=== PATIENT | male | born 1955 | race Caucasian/White ===

== ENCOUNTER 2021-04-29 20:06 | Emergency (ER) | payer OTHER ==
--- OUTSIDE RECORDS SUMMARY | 2021-04-29 20:09 | XMS REPORT | Continuity of Care Document ---
:1955 Author Organization [facility] t Address [address] [place] [address] Care Team Providers Name Role Phone Asked, Pcp Primary Care Physician Unavailable Vineet BURGESS, P. Attending Clinician Marco Antonio Méndez MD Attending Clinician Katie WEN Attending Clinician Unavailable Jeremiah BURGESS, FBrittney Attending Clinician Singer ESPINAL Attending Clinician Unavailable Payers Payer Name Policy Type Policy Effective Date Expiration Date Sour ce Number AETNAAETNA [id number] 2016 [facility] 00:00:00 Jain [id number]/-PresentPOS Problems Condition Condition Condition Status Onset Resolution Last Treating Co mments Source Name Details Category Date Date Treatment Clinician Date Abnormal Abnormal Disease Active Overview: Michael bonds nuclear nuclear 03-12 [place] Meth[place] di stress stress 00:00: g of this st test test 00 note might be different from the original. Added automatic ally from request for surgery Coronary Coronary Disease Active Overview: Michael bonds artery artery - Formatt[place] [facility] disease disease 00:00: g of this st involving involving 00 note huslia huslia might be coronary coronary different artery of artery of from the huslia huslia original. heart heart Added without without automatic angina angina ally from pectoris pectoris request for surgery Coronary Coronary Disease Active [place] arterioscl arterioscl 2-12 [facility] erosis in erosis in 00:00: st huslia huslia 00 artery artery Coronary Coronary Disease Active [place] artery artery 2-12 [facility] stenosis stenosis 00:00: st 00 Dyspnea on Dyspnea on Disease Active [place] exertion exertion 2-12 Method i 00:00: st 00 Fatigue Fatigue Disease Active [place] 2-12 [facility] 00:00: st 00 Other Other Disease Active 2016-11 [place] hyperlipid hyperlipid 0-24 Me th[facility] emia emia 00:00: st 00 Primary Primary Disease Active [place] gout gout 8-23 [facility] 00:00: st 00 Allergies, Adverse Reactions, Alerts This patient has no known allergies or adverse reactions. Family History Family Member Diagnosis Comments Start Date Stop Date Source Natural brother Hypertension [facility] mother Heart disease [facility] Natural mother Hypertension [facility] Natural sister Hypertension [facility] Social History Social Habit Start Date Stop Date Quantity Comments Source History of Cigarette Smoker [facility] tobacco use Tobacco use and 2020-05-03 2020-05-03 Never used [facility] ethodist exposure 00:00:00 00:00:00 Alcohol intake 2020-05-03 2020-05-03 Current [facility] thodist 00:00:00 00:00:00 non-drinker of alcohol (finding) Sex Ass[birth year] [facility] ethodist 00:00:00 00:00:00 Smoking Status Start Date Stop Date Source Former smoker 2020-05-03 00:00:00 2020-05-03 00:00:00 [facility] Medications Ordered Filled Start Stop Current Ordering Indication Dosage Frequency Signature Comments Components Source Medication Medication Date Date Medication? Clinician (SIG) Name Name clopidogreL Yes TAKE 1 [place] (PLAVIX) 75 2-08 TABLET BY Met hodi mg tablet 00:00: MOUTH st 00 EVERY DAY carvediloL Yes TAKE 1 [place] (COREG) 2-04 TABLET BY Methodi 12.5 MG 00:00: MOUTH 2 st tablet 00 TIMES A DAY. rosuvastati Yes TAKE 1 [place] (CRESTOR) 1-19 TABLET BY Met hodi 40 MG 00:00: MOUTH st tablet 00 EVERY DAY carvediloL No 12.5mg Q.5D TAKE 1 [place] (COREG) 9-18 02-04 TABLET Method[facility] 12.5 MG 00:00: 00:00 (12.[address] tablet 00 :00 TOTAL) BY MOUTH 2 (TWO) TIMES A DAY. rosuvastati 2020- No TAKE 1 [place] st[place] n (CRESTOR) 7-13 -19 TABLET BY Me thodi 40 MG 00:00: 00:[address] tablet 00 :00 EVERY DAY febuxostat 2019- Yes 40mg QD Take 40 mg [place] (ULORIC) 40 7-10 by mouth Meth juan mg tablet 11:51: daily. st 22 lisinopriL Yes 20mg QD Take 20 mg [place] (PRINIVIL) 7-10 by mouth Metho di 20 mg 11:51: daily. st tablet 22 patiromer 2019- Yes 16.8g Take 16.8 [place] calcium 7-10 g by Methodi sorbitex 11:51: mouth. 4-5 st (Veltassa) 22 times a 16.8 gram week powder in packet packet carvediloL 2019- No 12.5mg Q.5D TAKE 1 [place] (COREG) 7-06 09-18 TABLET [facility] 12.5 MG 00:00: 00:00 (12.[address] tablet 00 :00 TOTAL) BY MOUTH 2 (TWO) TIMES A DAY. febuxostat 2019- No 40mg QD Take 40 mg [place] (ULORIC) 40 6-30 06-30 by mouth Met hodi mg tablet 11:21: 00:[address] 38 :00 carvediloL 2019-2019- No 12.5mg Q.5D TAKE 1 [place] (COREG) 6-24 07-06 TABLET [facility] 12.5 MG 00:00: 00:00 (12.[address] tablet 00 :00 TOTAL) BY MOUTH 2 (TWO) TIMES A DAY. rosuvastati 2019-2019- No TAKE 1 [place] (CRESTOR) 6-15 07-13 TABLET BY Me thodi 40 MG 00:00: 00:[address] tablet 00 :00 EVERY DAY clopidogreL 2020- No TAKE 1 [place] (PLAVIX) 75 2-17 02-08 TABLET BY Me thodi mg tablet 00:00: 00:[address] 00 :00 EVERY DAY aspirin Yes 81mg QD Take 1 [place] (ECOTRIN) 2-12 tablet (81 Meth juan 81 MG 00:00: mg total) st enteric 00 by mouth coated daily. tablet eplerenone 25mg QD Take 1 [place] (INSPRA) 25 2-12 -30 tablet (25 M ethodi MG tablet 00:00: 00:00 mg total) st 00 :00 by mouth daily. colchicine TAKE 2 [place] 0.6 mg 05-25 CAPSULES Methodi tablet 00:00: 00:[address] 00 :00 AT ONSET OF GOUT, THEN 1 CAPSULE IN 1 HOUR Immunizations Ordered Immunization Filled Immunization Date Status Commen ts Source Name Name PFIZER COVID-19 MRNA 2020-12-30 Completed [place] VACCINATION 00:00:00 Jain PFIZER COVID-19 MRNA 2020-12-11 Completed [place] VACCINATION 00:00:00 Jain Influenza, 2020-11-14 Completed [place] Unspecified 00:00:00 Jain Pneumococcal 2020-11-14 Completed [place] Polysaccharide 00:00:00 Jain Tdap 2020-11-14 Completed [place] 00:00:00 Jain Pneumococcal 2019-04-11 Completed [place] Conjugate 13-Valent 00:00:00 [place] [address] Influenza, 2018-08-18 Completed [place] Unspecified 00:00:00 Jain Influenza, 2016-09-10 Completed [place] Unspecified 00:00:00 Jain Td, Unspecified 2009-11-24 Completed [place] 00:00:00 Jain Tdap 2009-11-24 Completed [place] 00:00:00 Jain Vital Signs Vital Name Observation Time Observation Value Comments Source Body height 2020-05-13 11:46:00 185.4 cm Marquise Renee Body weight 2020-05-13 11:46:00 83.462 kg Marquise Renee BMI 2020-05-13 11:46:00 24.28 kg/m2 Marquise Renee Systolic blood 2020-05-03 11:20:00 110 mm[Hg] Jereto n Jain pressure Diastolic blood 2020-05-03 11:20:00 50 mm[Hg] [place] on Jain pressure Heart rate 2020-05-03 11:20:00 60 /min Marquise Renee Procedures Procedure Date / Time Performed Performing Clinician Sourc e CBC WITH PLATELET AND 2020-07-25 09:41:00 Daniel Méndez DIFFERENTIAL COMPREHENSIVE METABOLIC 2020-07-25 09:41:00 Daniel Méndez PANEL LIPID PANEL 2020-07-25 09:41:00 Daniel Méndez Jain TTE COMPLETE, W CONTRAST, 2020-06-24 15:01:25 Daniel Méndez W DOPPLER ([id number]) Plan of Care Planned Activity Planned Date Details Comments Source Future Scheduled 2021-06-04 INFLUENZA VACCINE [place] Jain Test 00:00:00 [code = INFLUENZA VACCINE] Future Scheduled 2003 COLONOSCOPY SCREENING [place] Jain Test 00:00:00 [code = COLONOSCOPY SCREENING] Future Scheduled 2003 SHINGLES VACCINES [place] Jain Test 00:00:00 (#1) [code = SHINGLES VACCINES (#1)] Future Scheduled 1971 Hepatitis C screening [place] Jain Test 00:00:00 (procedure) [code = 100408025] Encounters Start End Encounter Admission Attending Care Care Encounter Source Date/Time Date/Time Type Type Clinicians Facility Department ID 2020-12-30 2020-12-30 Outpatient VINEET, [facility] [id number] 824 [place] 00:00:00 00:00:[address] 2020-12-11 2020-12-11 Outpatient [facility] [id number] [place] 00:00:00 00:00:[address] 2020-06-24 2020-06-24 Outpatient MARCIO, [facility] [id number] [place] 00:00:00 00:00:00 DANIEL [address] 2020-05-13 2020-05-13 Outpatient LOKHANDWALA [facility] [id number] [place] 00:00:00 00:00:00 , KRISTOFER [address] 2020-05-03 2020-05-03 Outpatient MARCIO, [facility] [id number] [place] 00:00:00 00:00:00 DANIEL [address] Results This patient has no known results.
[2021-04-29 20:56] LABS: Absolute Lymphocytes (CBC) 2.7 K/uL (0.7-4.9); Hematocrit 41.8 % (39.6-49.0); MPV 7.6 fL (7.6-11.3); RBC Red Blood Cell Count 4.62 M/uL (4.33-5.43)
[2021-04-29] MEDS ORDERED: METHYLPREDNISOLONE 125 MG INJ ONE (21:09)
[2021-04-29] MEDS ORDERED: ALBUTEROL 2.5 MG/3 ML NEB SOL ONE (21:10)
[2021-04-29] MEDS ORDERED: IPRATROPIUM BROM 0.5MG/2.5ML ONE (21:10)
[2021-04-29 21:16] LABS: ALT/SGPT 26 U/L (12-78); AST/SGOT 19 U/L (15-37); Albumin 3.9 g/dL (3.4-5.0); Alkaline Phosphatase 110 U/L (45-117); BUN Blood Urea Nitrogen 35 mg/dL (7-18); Bicarbonate 24 mmol/L (21-32); Bilirubin Direct < 0.1 mg/dL (0-0.2); Bilirubin Total 0.3 mg/dL (0.2-1.0); Glucose Level 91 mg/dL (74-106); Magnesium 2.3 mg/dL (1.8-2.4); NT PRO-BNP 306 pg/mL (<125); Potassium 4.9 mmol/L (3.5-5.1); Protein, Total 8.2 g/dL (6.4-8.2); Sodium Level 139 mmol/L (136-145); Troponin (Emerg Dept Use Only) 0.04 ng/mL (0.0-0.045)
--- NOTE | 2021-04-29 21:42 | RAD REPORT ---
EXAM DESCRIPTION: RAD - Chest Single View - 04/29/2021 9:27 pm CLINICAL HISTORY: SOB COMPARISON: None TECHNIQUE: AP portable chest image was obtained 04/29/2021 9:27 pm . FINDINGS: No peripheral mass consolidation. Flattened diaphragm and scattered interstitial opacifica tion consistent with the COPD. No acute failure or volume overload. Interstitial pattern could potent ially mask a minimal interstitial infiltrate or edema. Heart and vasculature are normal. No measurabl e pleural effusion and no pneumothorax. No acute bony abnormality seen. No acute aortic findings susp ected. IMPRESSION: Baseline chest examination showing COPD pattern. No focal infiltrate, mass or failure finding.
[2021-04-29 21:54] LABS: Protime INR 0.99
--- NOTE | 2021-04-29 22:19 | EDPHYS ---
Physician Documentation [facility] Name: Raheem Servin Age: 65 yrs Sex: Male : 1955 Arrival Date: 04/29/2021 Time: 20:10 Bed 23 Private MD: ED Physician Cristian Anderson HPI: 04/29 20:47 This 65 yrs old Male presents to ER via Ambulatory with complaints of Cough, pm1 Breathing Difficulty. 20:47 The patient has shortness of breath at rest. Onset: The symptoms/episode began/occurred pm1 2 week(s) ago, and became worse today. Duration: The symptoms are continuous. The patient's shortness of breath is aggravated by smoking. Associated signs and symptoms: Pertinent positives: productive cough, Pertinent negatives: chest pain, fever, nausea, vomiting. Severity of symptoms: in the emergency department the symptoms. The patient has not recently seen a physician, has an appointment scheduled, with painter hand soon. Patient with onset of productive cough and change in sputum in the past two weeks. Started smoking a few weeks prior to onset of symptoms. Cough and congestion worsening this morning and then got significantly worse when he was exposed to the cold air in an auditorium. Historical: - Allergies: 20:45 fish; bb - Home Meds: 20:45 Veltassa oral oral [Active]; Crestor oral oral [Active]; Lisinopril Oral [Active]; bb carvedilol oral oral [Active]; clopidogrel oral oral [Active]; - PMHx: 20:45 kidney disease; Hypertension; Hyperlipidemia; CAD; bb - Immunization history:: Adult Immunizations up to date, Client reports receiving the 2nd dose of the Covid vaccine. - Social history:: Smoking status: Patient reports the use of cigarette tobacco products, denies chronic smoking, but will smoke occasionally. ROS: 20:47 Constitutional: Negative for fever, chills, and weight loss, Eyes: Negative for injury, pm1 pain, redness, and discharge, ENT: Negative for injury, pain, and discharge, Neck: Negative for injury, pain, and swelling, Cardiovascular: Negative for chest pain, palpitations, and edema. 20:47 Abdomen/GI: Negative for abdominal pain, nausea, vomiting, diarrhea, and constipation, Back: Negative for injury and pain, : Negative for injury, bleeding, discharge, and swelling, MS/Extremity: Negative for injury and deformity, Skin: Negative for injury, rash, and discoloration, Neuro: Negative for headache, weakness, numbness, tingling, and seizure. 20:47 Respiratory: Positive for cough, with yellow sputum, shortness of breath. Exam: 20:47 Constitutional: This is a well developed, well nourished patient who is awake, alert, pm1 and in no acute distress. Head/Face: Normocephalic, atraumatic. 20:47 Back: No spinal tenderness. No costovertebral tenderness. Full range of motion. 20:47 Skin: Warm, dry with normal turgor. Normal color with no rashes, no lesions, and no evidence of cellulitis. MS/ Extremity: Pulses equal, no cyanosis. Neurovascular intact. Full, normal range of motion. 20:47 Eyes: Exam is negative for acute changes, Extraocular movements: intact throughout, Conjunctiva: normal, no injection, Sclera: no acute changes, icterus, is not appreciated. 20:47 ENT: Mouth: Lips: normal, Oral mucosa: normal, pink and intact, moist. 20:47 Cardiovascular: Rate: normal, Rhythm: regular, Pulses: no pulse deficits are appreciated, Heart sounds: normal, normal S1and S2. 20:47 Respiratory: the patient does not display signs of respiratory distress, Respirations: normal, Breath sounds: bronchial sounds, are heard diffusely. 20:47 Abdomen/GI: Inspection: abdomen appears normal, Palpation: abdomen is soft and non-tender, in all quadrants. 20:47 Neuro: Exam negative for acute changes, Orientation: is normal, Mentation: is normal, Motor: is normal, moves all fours, Sensation: is normal, no obvious gross deficits. Vital Signs: 20:39 BP 160 / 85; Pulse 74; Resp 24 S; Temp 98(O); Pulse Ox 95% on R/A; Weight 81.65 kg (R); bb Height 6 ft. 1 in. (185.42 cm) (R); Pain 0/10; 21:10 BP 162 / 84; Pulse 71; Resp 22; Pulse Ox 97% on 5% Nebulizer Mask; zb 21:56 BP 126 / 70; Pulse 66; Resp 18; Pulse Ox 94% on R/A; zb 22:30 BP 110 / 58; Pulse 74; Resp 18; Pulse Ox 96% ; zb 20:39 Body Mass Index 23.75 (81.65 kg, 185.42 cm) bb MDM: 20:35 Patient medically screened. pm1 22:17 Data reviewed: vital signs. Data interpreted: Pulse oximetry: on room air is 95 %. pm1 Interpretation: normal. 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 04/30 01:36 ED course: [place] reviewed. No prescriptions found. pm04/29 20:37 Order name: Basic Metabolic Panel 04/29 20:37 Order name: CBC with Diff pm04/29 20:37 Order name: LFT's pm04/29 20:37 Order name: Magnesium pm04/29 20:37 Order name: NT PRO-BNP pm04/29 20:37 Order name: PT-INR pm04/29 20:37 Order name: Troponin (emerg Dept Use Only) pm04/29 20:37 Order name: Flu pm04/29 20:37 Order name: Basic Metabolic Panel; Complete Time: 21:26 EDMS 04/29 20:37 Order name: CBC with Automated Diff; Complete Time: 21:07 ED04/29 20:37 Order name: Liver (Hepatic) Function; Complete Time: 21: ED04/29 20:37 Order name: Magnesium; Complete Time: 21:26 ED04/29 20:37 Order name: NT PRO-BNP; Complete Time: 21: ED04/29 20:37 Order name: XRAY Chest (1 view); Complete Time: 21:46 pm04/29 20:37 Order name: EKG; Complete Time: 20:38 pm04/29 20:37 Order name: Cardiac monitoring; Complete Time: 21:03 pm04/29 20:37 Order name: EKG - Nurse/Tech; Complete Time: 21:03 pm04/29 20:37 Order name: IV Saline Lock; Complete Time: 21:03 pm1 04/29 20:37 Order name: Labs collected and sent; Complete Time: 21:03 pm1 04/29 20:37 Order name: O2 Per Protocol; Complete Time: 21:03 pm1 04/29 20:37 Order name: O2 Sat Monitoring; Complete Time: 21:03 pm1 04/29 20:37 Order name: Protime (+INR); Complete Time: 22:21 EDMS 04/29 20:37 Order name: Troponin (Emerg Dept Use Only); Complete Time: 21: EDMS Administered Medications: 04/29 21:02 Drug: SOLU-Medrol (methylPrednisoLONE) 125 mg Route: IVP; Site: right antecubital; zb 22:17 Follow up: Response: No adverse reaction; Marked relief of symptoms zb 21:03 Drug: Albuterol - atroVENT (ipratropium) (3:1) (2.5 mg - 0.5 mg) 3 ml Route: Nebulizer; zb 22:17 Follow up: Response: No adverse reaction; Marked relief of symptoms zb 22:23 Drug: Rocephin (cefTRIAXone) 1 grams Route: IV; Rate: calculated rate; Site: right zb antecubital; 22:23 Follow up: Response: No adverse reaction; IV Status: Completed infusion; IV Intake: 5ml zb Disposition: 04/30 05:35 Co-signature as Attending Physician, Cristian Anderson MD. [email or web address] Disposition: 04/29/21 22:18 Discharged to Home. Impression: Chronic obstructive pulmonary disease with (acute) exacerbation. - Condition is Stable. - Discharge Instructions: How to Use an Inhaler, Chronic Obstructive Pulmonary Disease Exacerbation. - Prescriptions for Prednisone 20 mg Oral Tablet - take 3 tablet by ORAL route once daily for 5 days; 15 tablet. Zithromax Z- Miles 250 mg Oral Tablet - take 1 tablet by ORAL route as directed for 5 days Day 1 - take two (2) tablets one time. Day 2, 3, 4 , 5 take one (1) tablet once daily.; 6 tablet. Albuterol Sulfate 90 mcg/actuation - inhale 1-2 puff by INHALATION route every 4-6 hours; 1 Inhaler. Guaifenesin AC 10- 100 mg/5 mL Oral Liquid - take 10 milliliter by ORAL route every 4 hours As needed; 240 milliliter. - Medication Reconciliation Form, Thank You Letter, Antibiotic Education, Prescription Opioid Use form. - Follow up: Emergency Department; When: As needed; Reason: Worsening of condition. Follow up: Private Physician; When: 2 - 3 days; Reason: Recheck today's complaints, Continuance of care, Re-evaluation by your physician. - Problem is new. - Symptoms have improved. Signatures: Dispatcher [employer] EDNM Nusrat Yan, RN RN bb Niall Aleman PA PA cp Brian John, SENIOR QUALITATIVE RESEARCHER SENIOR QUALITATIVE RESEARCHER pm1 Cristian Anderson MD MD 7 Eileen Salguero RN RN zb Corrections: (The following items were deleted from the chart) 04/29 21:39 20:38 CORONAVIRUS+MRDEMETRI.BRZ ordered. [facility] EDNM 22:31 22:18 04/29/2021 22:18 Discharged to Home. Impression: Chronic obstructive pulmonary zb disease with (acute) exacerbation. Condition is Stable. Forms are Medication Reconciliation Form, Thank You Letter, Antibiotic Education, Prescription Opioid Use. Follow up: Emergency Department; When: As needed; Reason: Worsening of condition. Follow up: Private Physician; When: 2 - 3 days; Reason: Recheck today's complaints, Continuance of care, Re-evaluation by your physician. Problem is new. Symptoms have improved. pm1
--- NOTE | 2021-04-29 22:19 | ER ---
Nurse's Notes [facility] Name: Raheem Servin Age: 65 yrs Sex: Male : 1955 Arrival Date: 04/29/2021 Time: 20:10 Bed 23 Private MD: Diagnosis: Chronic obstructive pulmonary disease with (acute) exacerbation Presentation: 04/29 20:39 Chief complaint: Patient states: he has been having shortness of breath and a bb productive cough for several weeks but tonight it got significantly worse. Coronavirus screen: cough unrelated to allergies, shortness of breath, Client presents with at least one sign or symptom that may indicate coronavirus-19. Standard/surgical mask placed on the client. Ebola Screen: No symptoms or risks identified at this time. Initial Sepsis Screen: Does the patient meet any 2 criteria? No. Patient's initial sepsis screen is negative. Does the patient have a suspected source of infection? Yes: Productive cough/pneumonia. Risk Assessment: Do you want to hurt yourself or someone else? Patient reports no desire to harm self or others. Onset of symptoms was April 29, 2021. 20:39 Method Of Arrival: Ambulatory bb 20:39 Acuity: MARIUM 2 bb Triage Assessment: 22:31 Respiratory: Onset: The symptoms/episode began/occurred at an unknown time. zb Historical: - Allergies: 20:45 fish; bb - Home Meds: 20:45 Veltassa oral oral [Active]; Crestor oral oral [Active]; Lisinopril Oral [Active]; bb carvedilol oral oral [Active]; clopidogrel oral oral [Active]; - PMHx: 20:45 kidney disease; Hypertension; Hyperlipidemia; CAD; bb - Immunization history:: Adult Immunizations up to date, Client reports receiving the 2nd dose of the Covid vaccine. - Social history:: Smoking status: Patient reports the use of cigarette tobacco products, denies chronic smoking, but will smoke occasionally. Screenin:03 Abuse screen: Denies threats or abuse. Denies injuries from another. Nutritional zb screening: No deficits noted. Tuberculosis screening: No symptoms or risk factors identified. Fall Risk None identified. Assessment: 21:04 General: Appears uncomfortable, Behavior is cooperative, Reports feeling ill for zb fatigue for Denies fever, fatigue. Pain: Denies pain. Neuro: Level of Consciousness is awake, alert, obeys commands. Cardiovascular: Capillary refill < 3 seconds Patient's skin is warm and dry. Rhythm is regular. Respiratory: Reports shortness of breath at rest cough that is productive, hacking, persistent labored breathing Airway is patent Respiratory effort is labored, using tripod position, Respiratory pattern is tachypnea Breath sounds are diminished bilaterally. the patient has moderate shortness of breath. GI: Abdomen is flat. GI: Abdomen is. Derm: Skin is intact, is healthy with good turgor, Skin is normal. Musculoskeletal: Range of motion: intact in all extremities. Musculoskeletal: 21:56 Reassessment: Patient appears in no apparent distress at this time. Patient and/or zb family updated on plan of care and expected duration. Pain level reassessed. Patient is alert, oriented x 3, equal unlabored respirations, skin warm/dry/pink. patient states he is feeling a lot better. would like to leave. ecp notified. Patient denies pain at this time. Patient states feeling better. Patient states symptoms have improved. Vital Signs: 20:39 BP 160 / 85; Pulse 74; Resp 24 S; Temp 98(O); Pulse Ox 95% on R/A; Weight 81.65 kg (R); bb Height 6 ft. 1 in. (185.42 cm) (R); Pain 0/10; 21:10 BP 162 / 84; Pulse 71; Resp 22; Pulse Ox 97% on 5% Nebulizer Mask; zb 21:56 BP 126 / 70; Pulse 66; Resp 18; Pulse Ox 94% on R/A; zb 22:30 BP 110 / 58; Pulse 74; Resp 18; Pulse Ox 96% ; zb 20:39 Body Mass Index 23.75 (81.65 kg, 185.42 cm) bb ED Course: 20:10 Patient arrived in ED. es 20:23 Cristian Anderson MD is Attending Physician. mh7 20:35 Brian John NP is PHCP. pm1 20:41 Triage completed. bb 20:45 Eileen Salguero, ELYSE is Primary Nurse. 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 Family accompanied patient. 21:03 Initial lab(s) drawn, by me, sent to lab. EKG done, by ED staff, reviewed by Brian John NP. Inserted saline lock: 20 gauge in right antecubital area, using aseptic technique. Blood collected. 21:27 XRAY Chest (1 view) In Process Unspecified. EDMS 22:30 No provider procedures requiring assistance completed. IV discontinued, intact, zb bleeding controlled, No redness/swelling at site. Pressure dressing applied. 22:31 Patient has correct armband on for positive identification. 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 Pulse zb ox on. NIBP on. Door closed. Noise minimized. Administered Medications: 21:02 Drug: SOLU-Medrol (methylPrednisoLONE) 125 mg Route: IVP; Site: right antecubital; zb 22:17 Follow up: Response: No adverse reaction; Marked relief of symptoms zb 21:03 Drug: Albuterol - atroVENT (ipratropium) (3:1) (2.5 mg - 0.5 mg) 3 ml Route: Nebulizer; zb 22:17 Follow up: Response: No adverse reaction; Marked relief of symptoms zb 22:23 Drug: Rocephin (cefTRIAXone) 1 grams Route: IV; Rate: calculated rate; Site: right zb antecubital; 22:23 Follow up: Response: No adverse reaction; IV Status: Completed infusion; IV Intake: 5ml zb Intake: 22:23 IV: 5ml; Total: 5ml. zb Outcome: 22:18 Discharge ordered by . pm1 22:31 Discharged to home ambulatory. zb 22:31 Condition: stable 22:31 Discharge instructions given to patient, family, Instructed on discharge instructions, follow up and referral plans. medication usage, Demonstrated understanding of instructions, follow-up care, medications, Prescriptions given X 4. 22:31 Patient left the ED. zb Signatures: Dispatcher [employer] Yadira Brown Brenda, RN RN bb Marinas, Patrick, NP SUPERVISOR GROUNDS pm1 Cristian Anderson MD MD 7 Eileen Salguero RN RN zb
[2021-04-29 22:38] VITALS: TEMP 98
[2021-04-29] MEDS ORDERED: CEFTRIAXONE/SWI 1gm 1 GM/10 ML SYR ONE (22:39)
[2021-04-29 22:42] VITALS: BP 110/58; O2SAT 96
--- NOTE | 2021-04-30 08:43 | EKG ---
Test Date: 2021-04-29 Test Time: 20:59:10 [employer] Professor: KAREN MEASUREMENT RESULTS: Intervals: Rate: 70 IA: 188 QRSD: 106 QT: 420 QTc: 453 Moss: P: 76 IA: 188 QRS: 80 T: 72 INTERPRETIVE STATEMENTS: Normal sinus rhythm Normal ECG No previous ECG available for comparison Electronically Signed On 04-30-21 08:42:50 CDT by Rene Edgar
== END 2021-04-29 22:31 | disposition home or self-care (01) ==
LOC: ER 20:06
DX: J44.1 Chronic obstructive pulmonary disease with (acute) exacerbation (principal); E78.5 Hyperlipidemia, unspecified; I10 Essential (primary) hypertension; F17.210 Nicotine dependence, cigarettes, uncomplicated; Z20.822 Contact with and (suspected) exposure to COVID-19; Z91.013 Allergy to seafood
CPT/HCPCS: 93005; 85025; 80048; 36415; 83735; 85610; 80076; 84484; 83880; 87804 ×2; 71045; U0003; J0696; J2930; 96374; 96375; 99285